=== PATIENT | male | born 1935 | race Caucasian/White ===

== ENCOUNTER 2019-05-08 17:46 | Observation (INO) | payer MEDICARE ==
[~2019-05-08] VITALS: Ht 177.8 cm; Wt 96.0 kg
[~2019-05-08 17:46] MED LIST: AMLO10TA8 PO; ASPI-496 PO; ATOR40TA78 PO; CARB100T4 PO; CARB200T4 PO; CEFD300C37 PO; CLOP75TA PO; DOXA1TAB2 PO; GLUC15006 PO; LEVO25TA2 PO; LOSA100T14 PO; LOVA20TA2 PO; PANT20TA3 PO; POLY17PO5 PO; multi; multivitamin PO
--- NOTE | 2019-05-08 18:00 | NUR ---
TASK RN - PT BIB EMS FOR GENERAL MALAISE, NAUSEA,SOB AND GENERALIZED WEAKNESS. PT DC'D YESTERDAY FROM [facility] FOR HYPONATREMIA AND GENERALIZED WEAKNESS. STATES HE FELT OK UPON DC, SLEPT WELL, AND WOKE UP TODAY FEELING ILL, WORSENING THROUGHOUT THE DAY. PT NAUSEAS AND VOMITING SMALL AMOUNT OF UNDIGESTED FOOD UPON ARRIVAL TO ED. PT TRANSFERED TO ED [facility]. CP MONITORS IN PLACE, PT INTO GOWN. SIDERAILS UP X2. CALL LIGHT IN REACH. 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 AWAITING MD FOR ORDERS.
--- NOTE | 2019-05-08 18:18 | NUR ---
RECEIVED REPORT FROM YANNICK. ASSUMING CARE AT THIS TIME.
--- NOTE | 2019-05-08 18:25 | NUR ---
VERBAL ORDER RECEIVED FROM FOR LACTIC ACID BLOOD WORK.
[2019-05-08 19:05] LABS: ALANINE AMINOTRANSFERASE 56 U/L (12-78); ANION GAP 10 mmol/L (5-15); CALCIUM 8.2 mg/dL (8.5-10.1); CHLORIDE 95 mmol/L (98-107); CREATININE 0.88 mg/dL (0.7-1.3)
--- NOTE | 2019-05-08 19:06 | NUR ---
PT INCONTINENT IN BRIEF, UNABLE TO PROVIDE URINE SAMPLE. AWARE. PT GIVEN URINAL.
[2019-05-08 19:09] LABS: ALKALINE PHOSPHATASE 95 U/L (45-117); BILIRUBIN,TOTAL 0.3 mg/dL (0.2-1.0); TOTAL PROTEIN 7.4 g/dL (6.4-8.2); TROPONIN I < 0.015 ng/mL (0.000-0.045)
[2019-05-08 19:10] LABS: MEAN CORPUSCULAR HGB CONC 33.7 g/dL (33.2-36.2); MEAN CORPUSCULAR VOLUME 95.1 fL (81-97); MEAN PLATELET VOLUME 6.8 fL (7.4-10.4); PLATELET COUNT 309 x10^3/uL (130-400); RED BLOOD COUNT 4.43 x10^6/uL (4.38-5.82)
[2019-05-08 19:36] LABS: BASOPHILS # (AUTO) 0.03 x10^3/uL (0-0.1); BASOPHILS % (AUTO) 0 % (0-1); EOSINOPHILS # (AUTO) 0.25 x10^3/uL (0-0.4); EOSINOPHILS % (AUTO) 2 % (1-7); LYMPHOCYTES # (AUTO) 1.21 x10^3/uL (1-3.4); LYMPHOCYTES % (AUTO) 9 % (22-44); MD SCAN; MONOCYTES % (AUTO) 5 % (2-9); NEUTROPHILS # (AUTO) 11.37 x10^3/uL (1.8-6.8); NEUTROPHILS % (AUTO) 84 % (42-75)
--- NOTE | 2019-05-08 19:55 | NUR ---
MD AT BEDSIDE TO UPDATE PT AND FAMILY ON POC.
--- NOTE | 2019-05-08 20:38 | NUR ---
MED REC COMPLETE. PT RESTING ON HAN. TAMIKO. FAMILY AT BEDSIDE.
[2019-05-08] MEDS ORDERED: CEFTRIAXONE PMX 1GM/50ML 50 ML ONE (20:41)
[2019-05-08] MEDS ORDERED: CEFTRIAXONE PMX 1GM/50ML 50 ML IV ONE (21:00)
--- NOTE | 2019-05-08 21:18 | NUR ---
REPORT GIVEN TO BELKIS YOUSSEF
[2019-05-08] MEDS ORDERED: POLYETHYLENE GLYCOL 17 GM PACKET PO PRN (21:30)
[2019-05-08] MEDS ORDERED: BISACODYL 10 MG SUPP PR PRN (21:30)
[2019-05-08] MEDS ORDERED: ONDANSETRON ODT 4 MG PO PRN (21:30)
[2019-05-08] MEDS ORDERED: ACETAMINOPHEN 325 MG TABLET PO PRN (21:30)
[2019-05-08 21:46] VITALS: BP 136/74
[2019-05-08] MEDS: CARBAMAZEPINE 200 MG TABLET PO SCH (22:29)
[2019-05-08] MEDS: AZITHROMYCIN 500 MG in SODIUM CHLORIDE 0.9% 250 ML IV SCH (22:29)
[2019-05-08] MEDS: CLOPIDOGREL 75 MG TABLET PO SCH (22:29)
[2019-05-08] MEDS: SODIUM CHLORIDE FLUSH 10ML SYR IVF SCH (22:30)
[2019-05-09 03:03] VITALS: BP 149/87
[2019-05-09 05:16] LABS: ALBUMIN 3.5 g/dL (3.4-5.0); ANION GAP 4 mmol/L (5-15); CALCIUM 8.3 mg/dL (8.5-10.1); CHLORIDE 99 mmol/L (98-107)
[2019-05-09 05:18] LABS: ALANINE AMINOTRANSFERASE 47 U/L (12-78); ALKALINE PHOSPHATASE 89 U/L (45-117); BILIRUBIN,TOTAL 0.3 mg/dL (0.2-1.0); CREATININE 0.88 mg/dL (0.7-1.3)
[2019-05-09] MEDS: LEVOTHYROXINE 25 MCG TABLET PO SCH (05:42)
[2019-05-09 07:04] LABS: MEAN CORPUSCULAR HEMOGLOBIN 31.6 pg (27.5-34.5); MEAN CORPUSCULAR HGB CONC 33.7 g/dL (33.2-36.2); MEAN CORPUSCULAR VOLUME 93.8 fL (81-97); MEAN PLATELET VOLUME 6.4 fL (7.4-10.4); PLATELET COUNT 300 x10^3/uL (130-400); RED BLOOD COUNT 4.21 x10^6/uL (4.38-5.82); RED CELL DISTRIBUTION WIDTH 13.1 % (9.4-14.8)
[2019-05-09 07:28] LABS: BASOPHILS # (AUTO) 0.03 x10^3/uL (0-0.1); BASOPHILS % (AUTO) 0 % (0-1); EOSINOPHILS # (AUTO) 0.13 x10^3/uL (0-0.4); EOSINOPHILS % (AUTO) 2 % (1-7); LYMPHOCYTES # (AUTO) 1.83 x10^3/uL (1-3.4); LYMPHOCYTES % (AUTO) 24 % (22-44); MD SCAN; MONOCYTES # (AUTO) 0.78 x10^3/uL (0.2-0.8); MONOCYTES % (AUTO) 10 % (2-9); NEUTROPHILS # (AUTO) 5.01 x10^3/uL (1.8-6.8); NEUTROPHILS % (AUTO) 64 % (42-75)
[2019-05-09 07:40] VITALS: BP 154/87
[2019-05-09] MEDS ORDERED: GLUCOSAMINE HCL 3000 MG PO SCH (09:00)
[2019-05-09] MEDS: AMLODIPINE 10 MG TAB PO SCH (09:09)
[2019-05-09] MEDS: SENNA/DOCUSATE TABLET PO SCH (09:09)
[2019-05-09] MEDS: CARBAMAZEPINE 100 MG TAB.CHEW PO SCH (09:10)
[2019-05-09] MEDS: SODIUM CHLORIDE FLUSH 10ML SYR IVF SCH ×2 (09:10→20:38)
[2019-05-09] MEDS: LOSARTAN 50MG TABLET PO SCH (09:10)
[2019-05-09] MEDS: MULTIVITAMIN 1 TABLET PO SCH (09:10)
[2019-05-09] MEDS: POLYETHYLENE GLYCOL 17 GM PACKET PO PRN (11:13)
[2019-05-09 12:29] VITALS: BP 160/81
[2019-05-09 19:10] VITALS: BP 153/88
[2019-05-09] MEDS: CEFTRIAXONE PMX 1GM/50ML 50 ML IV SCH (20:38)
[2019-05-09] MEDS: CARBAMAZEPINE 200 MG TABLET PO SCH (20:39)
[2019-05-09] MEDS: CLOPIDOGREL 75 MG TABLET PO SCH (20:39)
[2019-05-09] MEDS: ATORVASTATIN 40 MG TABLET PO SCH (20:39)
[2019-05-09 21:04] LABS: MICROSCOPIC NOT IND
[2019-05-09 21:12] LABS: CULTURE INDICATED? NO
[2019-05-09] MEDS: AZITHROMYCIN 500 MG in SODIUM CHLORIDE 0.9% 250 ML IV SCH (21:36)
[2019-05-10 01:13] VITALS: BP 158/94
[2019-05-10 05:41] LABS: BASOPHILS # (AUTO) 0.05 x10^3/uL (0-0.1); BASOPHILS % (AUTO) 1 % (0-1); EOSINOPHILS # (AUTO) 0.25 x10^3/uL (0-0.4); EOSINOPHILS % (AUTO) 3 % (1-7); LYMPHOCYTES # (AUTO) 2.59 x10^3/uL (1-3.4); LYMPHOCYTES % (AUTO) 27 % (22-44); MD NO; MEAN CORPUSCULAR HEMOGLOBIN 31.4 pg (27.5-34.5); MEAN CORPUSCULAR HGB CONC 33.5 g/dL (33.2-36.2); MEAN CORPUSCULAR VOLUME 93.8 fL (81-97); MEAN PLATELET VOLUME 6.5 fL (7.4-10.4); MONOCYTES # (AUTO) 0.95 x10^3/uL (0.2-0.8); MONOCYTES % (AUTO) 10 % (2-9); NEUTROPHILS # (AUTO) 5.79 x10^3/uL (1.8-6.8); NEUTROPHILS % (AUTO) 60 % (42-75); PLATELET COUNT 319 x10^3/uL (130-400); RED BLOOD COUNT 4.29 x10^6/uL (4.38-5.82); RED CELL DISTRIBUTION WIDTH 13.2 % (9.4-14.8)
[2019-05-10 05:46] LABS: ANION GAP 9 mmol/L (5-15); CALCIUM 8.3 mg/dL (8.5-10.1); CHLORIDE 100 mmol/L (98-107)
[2019-05-10 05:47] LABS: CREATININE 0.88 mg/dL (0.7-1.3)
[2019-05-10] MEDS: PANTOPRAZOLE 20MG TABLET PO SCH (06:29)
[2019-05-10] MEDS: LEVOTHYROXINE 25 MCG TABLET PO SCH (06:30)
[2019-05-10 08:19] VITALS: BP 158/88
[2019-05-10] MEDS: AMLODIPINE 10 MG TAB PO SCH (08:52)
[2019-05-10] MEDS: POLYETHYLENE GLYCOL 17 GM PACKET PO PRN (08:52)
[2019-05-10] MEDS: MULTIVITAMIN 1 TABLET PO SCH (08:52)
[2019-05-10] MEDS: CARBAMAZEPINE 100 MG TAB.CHEW PO SCH (08:52)
[2019-05-10] MEDS: LOSARTAN 50MG TABLET PO SCH (08:52)
[2019-05-10] MEDS: SENNA/DOCUSATE TABLET PO SCH (08:52)
[2019-05-10] MEDS: SODIUM CHLORIDE FLUSH 10ML SYR IVF SCH ×2 (08:53→20:41)
[2019-05-10] MEDS: AZITHROMYCIN 500 MG TABLET PO SCH (12:14)
[2019-05-10 13:26] VITALS: BP 153/85
[2019-05-10 19:20] VITALS: BP 171/90
[2019-05-10 20:24] VITALS: BP 167/91
[2019-05-10] MEDS: ATORVASTATIN 40 MG TABLET PO SCH (20:41)
[2019-05-10] MEDS: CARBAMAZEPINE 200 MG TABLET PO SCH (20:41)
[2019-05-10] MEDS: CLOPIDOGREL 75 MG TABLET PO SCH (20:41)
[2019-05-10] MEDS: CEFTRIAXONE PMX 1GM/50ML 50 ML IV SCH (20:41)
[2019-05-11 00:52] VITALS: BP 158/91
[2019-05-11] MEDS: LEVOTHYROXINE 25 MCG TABLET PO SCH (05:29)
[2019-05-11 08:06] VITALS: BP 170/89
[2019-05-11] MEDS: SENNA/DOCUSATE TABLET PO SCH (09:37)
[2019-05-11] MEDS: SODIUM CHLORIDE FLUSH 10ML SYR IVF SCH ×2 (09:37→20:35)
[2019-05-11] MEDS: LOSARTAN 50MG TABLET PO SCH (09:38)
[2019-05-11] MEDS: AMLODIPINE 10 MG TAB PO SCH (09:38)
[2019-05-11] MEDS: AZITHROMYCIN 500 MG TABLET PO SCH (09:39)
[2019-05-11] MEDS: MULTIVITAMIN 1 TABLET PO SCH (09:39)
[2019-05-11] MEDS: CARBAMAZEPINE 100 MG TAB.CHEW PO SCH (09:39)
[2019-05-11 17:00] VITALS: BP 164/96
[2019-05-11 19:06] VITALS: BP 147/81
[2019-05-11] MEDS: CEFTRIAXONE PMX 1GM/50ML 50 ML IV SCH (20:35)
[2019-05-11] MEDS: CARBAMAZEPINE 200 MG TABLET PO SCH (20:35)
[2019-05-11] MEDS: ATORVASTATIN 40 MG TABLET PO SCH (20:35)
[2019-05-11] MEDS: CLOPIDOGREL 75 MG TABLET PO SCH (20:36)
[2019-05-12 00:34] VITALS: BP 158/62
[2019-05-12] MEDS: LEVOTHYROXINE 25 MCG TABLET PO SCH (06:17)
[2019-05-12] MEDS: PANTOPRAZOLE 20MG TABLET PO SCH (06:19)
[2019-05-12 08:00] VITALS: BP 160/94
[2019-05-12] MEDS: SODIUM CHLORIDE FLUSH 10ML SYR IVF SCH (09:04)
[2019-05-12] MEDS: AMLODIPINE 10 MG TAB PO SCH (09:05)
[2019-05-12] MEDS: CARBAMAZEPINE 100 MG TAB.CHEW PO SCH (09:05)
[2019-05-12] MEDS: MULTIVITAMIN 1 TABLET PO SCH (09:05)
[2019-05-12] MEDS: SENNA/DOCUSATE TABLET PO SCH (09:05)
[2019-05-12] MEDS: AZITHROMYCIN 500 MG TABLET PO SCH (09:05)
[2019-05-12] MEDS: LOSARTAN 50MG TABLET PO SCH (09:48)
[2019-05-12] MEDS: CEFTRIAXONE PMX 1GM/50ML 50 ML IV SCH (11:57)
[2019-05-12 12:29] VITALS: BP 155/88
== END 2019-05-12 14:22 | disposition home health service (06) ==
LOC: ED 21:01 → INTOOBSV 21:08 → EDIP 21:08 → 3N 21:35 → DCLOUNGE 05-12 14:01
PROVIDERS: ADMIT Internal Medicine; ATTEND Family Medicine
DX: J18.1 Lobar pneumonia, unspecified organism (principal); D72.829 Elevated white blood cell count, unspecified; E87.1 Hypo-osmolality and hyponatremia; K59.09 Other constipation; K21.9 Gastro-esophageal reflux disease without esophagitis; I35.1 Nonrheumatic aortic (valve) insufficiency; I10 Essential (primary) hypertension; E03.9 Hypothyroidism, unspecified; H91.90 Unspecified hearing loss, unspecified ear; R53.1 Weakness; E78.5 Hyperlipidemia, unspecified; G50.0 Trigeminal neuralgia; R42 Dizziness and giddiness; Z88.0 Allergy status to penicillin; Z85.828 Personal history of other malignant neoplasm of skin; Z86.73 Personal history of transient ischemic attack (TIA), and cerebral infarction without residual deficits
CPT/HCPCS: 36415; 71045; 80048; 80053; 81003; 83605; 83735; 84484; 85025; 87040; 96365; 96366; 96367; 97162; 97165; 99285; G0378; J0456; J0696; J7050

== ENCOUNTER 2020-03-22 23:38 | Emergency (ER) | payer MEDICARE ==
[~2020-03-22] VITALS: Ht 177.8 cm; Wt 99.0 kg
[2020-03-22 23:40] VITALS: BP 135/67
--- NOTE | 2020-03-22 23:49 | NUR ---
ASSESSMENT MADE. PA AT BEDSIDE. PATIENT STATES HE IS FEELING MUCH BETTER NOW. BP 135/67, ALERT AND ORIENTED.
[2020-03-23] MEDS ORDERED: SODIUM CHLORIDE FLUSH 10ML SYR IVF ONE
--- NOTE | 2020-03-23 00:02 | NUR ---
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 EKG done. FS 121mg/dl
--- NOTE | 2020-03-23 00:06 | NUR ---
patient took new prescription medication tonight ( finasteride and alfusozin )
[2020-03-23 00:09] LABS: BASOPHILS # (AUTO) 0.03 x10^3/uL (0-0.1); BASOPHILS % (AUTO) 0 % (0-1); EOSINOPHILS # (AUTO) 0.13 x10^3/uL (0-0.4); EOSINOPHILS % (AUTO) 1 % (1-7); LYMPHOCYTES # (AUTO) 1.43 x10^3/uL (1-3.4); LYMPHOCYTES % (AUTO) 16 % (22-44); MD NO; MEAN CORPUSCULAR HEMOGLOBIN 31.6 pg (27.5-34.5); MEAN CORPUSCULAR HGB CONC 33.5 g/dL (33.2-36.2); MEAN CORPUSCULAR VOLUME 94.3 fL (81-97); MEAN PLATELET VOLUME 6.9 fL (7.4-10.4); MONOCYTES % (AUTO) 8 % (2-9); NEUTROPHILS # (AUTO) 6.67 x10^3/uL (1.8-6.8); NEUTROPHILS % (AUTO) 75 % (42-75); PLATELET COUNT 203 x10^3/uL (130-400); RED BLOOD COUNT 4.14 x10^6/uL (4.38-5.82); RED CELL DISTRIBUTION WIDTH 13.6 % (9.4-14.8)
--- NOTE | 2020-03-23 00:19 | NUR ---
patient to CT scan. x ray done.
[2020-03-23 00:21] LABS: ALANINE AMINOTRANSFERASE 25 U/L (12-78); ALBUMIN 3.8 g/dL (3.4-5.0); ANION GAP 9 mmol/L (5-15); CALCIUM 8.3 mg/dL (8.5-10.1); CHLORIDE 105 mmol/L (98-107); CREATININE 1.28 mg/dL (0.7-1.3)
[2020-03-23 00:26] LABS: ALKALINE PHOSPHATASE 95 U/L (45-117); BILIRUBIN,TOTAL 0.3 mg/dL (0.2-1.0); TOTAL PROTEIN 6.7 g/dL (6.4-8.2); TROPONIN I < 0.015 ng/mL (0.000-0.045)
--- NOTE | 2020-03-23 01:56 | NUR ---
water provided. will wait if patient can given urine sample.
--- NOTE | 2020-03-23 02:15 | NUR ---
patient attempted to give urine sample. unsuccessful. aware.
--- NOTE | 2020-03-23 02:52 | NUR ---
re-evaluation done. patient discharged with instruction. verbalized understanding.
== END 2020-03-23 02:55 | disposition home or self-care (01) ==
LOC: ED 03-23 00:08
DX: R55 Syncope and collapse (principal); R53.1 Weakness; T50.995A Adverse effect of other drugs, medicaments and biological substances, initial encounter; E03.9 Hypothyroidism, unspecified; E03.4 Atrophy of thyroid (acquired); R94.31 Abnormal electrocardiogram [ECG] [EKG]; K21.9 Gastro-esophageal reflux disease without esophagitis; E78.5 Hyperlipidemia, unspecified; I10 Essential (primary) hypertension; Z86.73 Personal history of transient ischemic attack (TIA), and cerebral infarction without residual deficits; Y92.89 Other specified places as the place of occurrence of the external cause
CPT/HCPCS: 70450; 71045; 80053; 82962; 84443; 84484; 85025; 93005; 99285

== ENCOUNTER 2020-11-04 14:50 | Emergency (ER) | payer MEDICARE ==
[~2020-11-04] VITALS: Ht 177.8 cm; Wt 90.0 kg
[~2020-11-04 14:50] MED LIST changes: +AMLO-150 PO; +AMLO-211 PO; -AMLO10TA8 PO; +ASPI-963 PO; +CARB200C5 PO; +DOXAZOSIN PO; -PANT20TA3 PO; +PANT20TA4 PO; +PANT40GR PO
--- NOTE | 2020-11-04 15:03 | NUR ---
demetrius. report received from ems. pt had visual disturbance/nausea/vomitting/weakness started 10:30am today and all symptoms resolved at this time. hx of tia/stroke. facial symmetrical/speech clear. sensation intact on birateral ue/le. pt's aox4. resps even and unlabored. all monitors in place. call light within reach. ekg done at bedside by emt.
[2020-11-04] MEDS ORDERED: SODIUM CHLORIDE FLUSH 10ML SYR IVF ONE (16:00)
[2020-11-04] MEDS ORDERED: ONDANSETRON 2MG/ML, 2ML IVPush ONE (16:00)
[2020-11-04] MEDS ORDERED: MECLIZINE CHEWABLE 25 MG TAB PO ONE (16:00)
[2020-11-04] MEDS ORDERED: MECLIZINE CHEWABLE 25 MG TAB ONE (16:04)
--- NOTE | 2020-11-04 16:07 | NUR ---
pt medicated per emar. pt tolerated well.
[2020-11-04 16:25] LABS: ALANINE AMINOTRANSFERASE 29 U/L (12-78); ALBUMIN 4.1 g/dL (3.4-5.0); ANION GAP 7 mmol/L (5-15); CALCIUM 8.7 mg/dL (8.5-10.1); CHLORIDE 99 mmol/L (98-107); CREATININE 0.93 mg/dL (0.7-1.3)
[2020-11-04 16:27] LABS: ALKALINE PHOSPHATASE 93 U/L (45-117); BILIRUBIN,TOTAL 0.3 mg/dL (0.2-1.0); TOTAL PROTEIN 7.4 g/dL (6.4-8.2)
[2020-11-04 16:38] LABS: BASOPHILS % (AUTO) 0 % (0-1); EOSINOPHILS % (AUTO) 0 % (1-7); LYMPHOCYTES % (AUTO) 11 % (22-44); MEAN CORPUSCULAR HEMOGLOBIN 30.9 pg (27.5-34.5); MEAN PLATELET VOLUME 7.2 fL (7.4-10.4); MONOCYTES % (AUTO) 5 % (2-9); NEUTROPHILS % (AUTO) 84 % (42-75); PLATELET COUNT 234 x10^3/uL (130-400); RED BLOOD COUNT 4.52 x10^6/uL (4.38-5.82); RED CELL DISTRIBUTION WIDTH 13.8 % (9.4-14.8)
[2020-11-04 16:41] LABS: MD NO
--- NOTE | 2020-11-04 17:12 | NUR ---
pt resting in [facility]. pt's aox4. resps even and unlabored. all monitors in place. call light within reach.
--- NOTE | 2020-11-04 17:44 | NUR ---
road test is done. pt stated"i sonja dzy for a few steps, but im ok now." edmd notified. pt and pt's family stated "need more time, like 30 min or so."
[2020-11-04 18:05] VITALS: BP 172/81
--- NOTE | 2020-11-04 18:06 | NUR ---
2nd road test done per pt's request. pt stated " i feel much better" pt denies dzy at this time.
--- NOTE | 2020-11-04 18:17 | NUR ---
Patient given discharge instructions and they have confirmed that they understand the instructions.
== END 2020-11-04 18:18 | disposition home or self-care (01) ==
LOC: ED 18:00
DX: R42 Dizziness and giddiness (principal); I10 Essential (primary) hypertension; R11.2 Nausea with vomiting, unspecified; R06.89 Other abnormalities of breathing; R51.9 Headache, unspecified; R94.31 Abnormal electrocardiogram [ECG] [EKG]; E03.9 Hypothyroidism, unspecified; K21.9 Gastro-esophageal reflux disease without esophagitis; Z86.73 Personal history of transient ischemic attack (TIA), and cerebral infarction without residual deficits
CPT/HCPCS: 36415; 70450; 71045; 80053; 85025; 93005; 99285